=== PATIENT | female | born 1945 | race Caucasian/White ===

== ENCOUNTER 2018-07-08 19:11 | Emergency (ER) | payer OTHER ==
[~2018-07-08] VITALS: Ht 157.5 cm; Wt 60.3 kg
[2018-07-08 19:54] LABS: ABSOLUTE BASOPHILS 0.1 thou/uL (0.0-0.2); ABSOLUTE EOSINOPHILS 0.3 thou/uL (0.0-0.7); ABSOLUTE LYMPHOCYTES 2.7 thou/uL (0.8-5.3); ABSOLUTE MONOCYTES 0.6 thou/uL (0.0-1.2); ABSOLUTE NEUTROPHILS 3.9 thou/uL (1.6-8.1); BASOPHILS 0.8 %; EOSINOPHILS 3.9 %; HEMATOCRIT 39.7 % (37.0-47.0); LYMPHOCYTES 35.7 %; MCH 26.2 pg (26.0-34.0); MCHC 32.7 g/dL (28.0-37.0); MCV 80.1 fL (80.0-100.0); MONOCYTES 7.6 %; MPV 7.9 fl. (7.2-11.1); NUCLEATED RBCS 0 /100WBC; PLATELET COUNT* 415 thou/uL (150-400); RBC 4.96 mil/uL (4.20-5.00); WBC 7.5 thou/uL (4.0-11.0)
[2018-07-08 20:02] LABS: PROTIME 9.8 Seconds (9.20-11.50)
[2018-07-08 20:15] LABS: ALBUMIN 3.2 g/dL (3.4-5.0); ALKALINE PHOSPHATASE 102 U/L (46-116); ANION GAP 12 mmol/L (7-16); BUN 10 mg/dL (7-18); CALCIUM 8.6 mg/dL (8.5-10.1); CHLORIDE 101 mmol/L (98-107); CO2 26 mmol/L (21-32); CREATININE 0.9 mg/dL (0.6-1.3); GLUCOSE 309 mg/dL (70-99); POTASSIUM 3.3 mmol/L (3.5-5.1); SGOT 86 U/L (15-37); SGPT 71 U/L (30-65); SODIUM 139 mmol/L (136-145); TOTAL BILIRUBIN 0.2 mg/dL (<0.1-1.0); TROPONIN-I LEVEL <0.06 ng/mL (<0.06)
[2018-07-08 20:51] LABS: URINE BILIRUBIN NEGATIVE (Negative); URINE BLOOD TRACE (Negative); URINE CLARITY CLEAR; URINE COLOR YELLOW; URINE GLUCOSE-RANDOM 3+ (Negative); URINE KETONES NEGATIVE (Negative); URINE LEUKOCYTES TRACE (Negative); URINE NITRITE NEGATIVE (Negative); URINE PROTEIN NEGATIVE (Negative); URINE SPECIFIC GRAVITY 1.015 (1.005-1.030); URINE UROBILINOGEN 0.2 E.U./dl (0.2-1.0)
[2018-07-08 21:08] LABS: MUCUS None Seen strn/LPF (None Seen); SQUAMOUS >10 Many /LPF (0-3)
[2018-07-08 21:09] LABS: URINE RBC 0-2 Rare /HPF (0-2); URINE WBC 0-5 Rare /HPF (0-5)
[2018-07-08 21:10] LABS: CASTS None Seen /LPF (None Seen); CRYSTALS None Seen /LPF (None Seen)
[2018-07-08 21:13] LABS: TRANSITIONAL EPITHEL CELL 4-10 Moderate /LPF (None Seen)
[2018-07-08 21:14] LABS: YEAST Present (None Seen)
[2018-07-08 21:16] LABS: BACTERIA 1-9 Few /HPF (None Seen)
[2018-07-08 21:48] VITALS: BP 171/82
--- NOTE | 2018-07-10 12:27 | EKG ---
[place] [address] ELECTROCARDIOGRAM REPORT Name: DARRON ADAM Room: [facility]#: [id number] Admission: 07/08/18 Attend Phys: Discharge: 07/08/18 Date of : 41 Report #: [id number] THIS REPORT FOR: //name// [facility] ED Test Date: 2018-07-08 Test Time: 19:51:38 Pat Name: DARRON AUE Department: Room: Gender: F Broadcast Traffic Coordinator: Anthony RODGERS : 1945 Requested By: Nano Richardson Order Number: [id number] MD: Matthias Milian Measurements Intervals [place] Rate: 90 P: 47 FL: 169 QRS: 65 QRSD: 95 T: 59 QT: 356 QTc: 436 Interpretive Statements Sinus rhythm Borderline low voltage, extremity leads Abnormal T, consider ischemia, lateral leads Minimal ST elevation, inferior leads Baseline wander in lead(s) V1,V2,V5 No previous ECG available for comparison Electronically Signed On 07-10-2018 12:27:24 CDT by Matthias Milian [email or web address] <ELECTRONICALLY SIGNED> By: Matthias Milian MD, FACC 07/10/18 1227 50 50 Matthias Milian MD, FAC /EPI
== END 2018-07-08 21:50 | disposition short-term general hospital (02) ==
LOC: M.ERS 19:11
PROVIDERS: Physician Assistant
DX: S02.2XXB Fracture of nasal bones, initial encounter for open fracture (principal); S01.81XA Laceration without foreign body of other part of head, initial encounter; Z98.890 Other specified postprocedural states; Z90.710 Acquired absence of both cervix and uterus; W18.39XA Other fall on same level, initial encounter; Y93.89 Activity, other specified; Y92.89 Other specified places as the place of occurrence of the external cause; Y99.8 Other external cause status